=== PATIENT | female | born 1995 | race Caucasian/White ===

== ENCOUNTER 2020-12-22 19:40 | Outpatient (CLI) | payer OTHER ==
[~2020-12-22] VITALS: Ht 162.6 cm; Wt 69.0 kg
[2020-12-22 20:02] VITALS: BP 134/77
[2020-12-22] MEDS ORDERED: PRENTAB9 PO (20:18)
--- NOTE | 2020-12-22 21:25 | IPNPDOC ---
Obstetrical Progress Note Date of Service Dec 22, 2020 Subjective 25yo at 29+3 presents for decreased FM. She normally gets "20 kicks in a minute" unless her baby is sleeping. She is achieving her kick counts but it seems less than usual. She denied VB, LOF, contractions. She otherwise denied a 12 point ROS. Objective Vital Signs Date Time Temp Pulse Resp B/P (MAP) Pulse Ox O2 Delivery O2 Flow Rate FiO2 12/22/20 20:02 97.6 83 16 134/77 (96) Assessment Variability: Moderate Accelerations: Positive Decelerations: None Heart Rate Tracing: Category I Tocometer Contractions: No Assessment and Plan Additional Comments 25yo at 29+3 presents for decreased FM. VS normal. NST CAT I reactive, no contractions on toco. TAUS cephalic, MVP 5cm, +FM. All signs are reassuring at this time. Educated on kick counts, hydration, and regular eating. Educated on routine OB return precautions. Otherwise to follow up at next BRITTNEY IBRAHIM DO Dec 22, 2020 21:25
== END 2020-12-22 21:30 | disposition home or self-care (01) ==
LOC: M LDO 19:40
PROVIDERS: ATTEND Obstetrics & Gynecology
DX: O36.8130 Decreased fetal movements, third trimester, not applicable or unspecified (principal); Z3A.29 29 weeks gestation of pregnancy; Z79.899 Other long term (current) drug therapy
CPT/HCPCS: 59025; 76815; G0378; G0463

== ENCOUNTER 2021-01-23 16:29 | Outpatient (CLI) | payer OTHER ==
[~2021-01-23] VITALS: Ht 167.6 cm; Wt 71.9 kg
[~2021-01-23 16:29] MED LIST: PRENTAB9 PO
[2021-01-23] MEDS ORDERED: PRENTAB9 PO (16:46)
[2021-01-23 16:50] VITALS: BP 130/86
[2021-01-23] MEDS ORDERED: FLUCONAZOLE 50MG TABLET PO ONE (17:45)
[2021-01-23 18:11] VITALS: BP 137/92
[2021-01-23 18:29] LABS: AMORPHOUS SEDIMENT SMALL (NEGATIVE); APPEARANCE, URINE HAZY (CLEAR); BACTERIA, URINE AUTO NEGATIVE (NEGATIVE); BILIRUBIN, URINE AUTO NEGATIVE (NEGATIVE); BLOOD, URINE BLOOD NEGATIVE (NEGATIVE); COLOR, URINE YELLOW (YELLOW); GLUCOSE, URINE (UA) AUTO NEGATIVE (NEGATIVE); KETONE, URINE AUTO NEGATIVE (NEGATIVE); LEUKOCYTE ESTERASE, URINE AUTO NEGATIVE (NEGATIVE); MUCUS, URINE SMALL (NEGATIVE); NITRITE, URINE AUTO NEGATIVE (NEGATIVE); PROTEIN, URINE AUTO NEGATIVE (NEGATIVE); RBC, URINE AUTO 2 /HPF (0-3); SPECIFIC GRAVITY URINE AUTO 1.019 (1.002-1.035); SQUAMOUS EPITHELIAL CELL UR AU 0 /HPF (0-6); WBC, URINE AUTO 3 /HPF (0-3)
--- NOTE | 2021-01-23 18:45 | IPNPDOC ---
Obstetrical Progress Note Date of Service Jan 23, 2021 Subjective Idalia is a 25yo at 34+0 who presents for vaginal discharge, dysuria, and cramps. She has recently been treated for a UTI with macrobid and keflex. She reports superficial pain when she urinates but no suprapubic pain. She endorses thick vaginal discharge and vaginal irritation. She denied vb, lof, decreased fm, contractions. She otherwise denied a 12 point ROS. Objective Vital Signs Date Time Temp Pulse Resp B/P (MAP) Pulse Ox O2 Delivery O2 Flow Rate FiO2 01/23/21 16:50 99.1 69 18 130/86 (101) Assessment Variability: Moderate Accelerations: Positive Decelerations: None Heart Rate Tracing: Category I Tocometer Contractions: No Sterile Vaginal Examination Dilation: 1cm Effacement (%): 30% Station: -3 Cervical Consistency: Medium Cervical Position: Posterior Assessment and Plan Additional Comments Idalia is a 25yo at 34+0 who presents for vaginal discharge, dysuria, and cramps. She has recently been treated for a UTI with macrobid and keflex. VS normal. CAT I NST without contractions, occasional uterine irritability noted. UA without evidence of infection, MAXIMO/WP with abundant budding yeast. Thick white discharge on exam. Cervix visually 1cm and 1/25/-3 on exam and was unchanged on 1.5h repeat exam. Labor is unlikely at this time given non-changing cervix. Vaginal candidiasis was treated with fluconazole 150mg PO. Educated on routine OB return precautions. Otherwise to follow up at next STEPAN. BRITTNEY GRULLON DO Jan 23, 2021 18:45
[2021-01-23 21:07] LABS: GC DNA AMPLIFICATION NEGATIVE (NEGATIVE)
== END 2021-01-23 19:00 | disposition home or self-care (01) ==
LOC: M LDO 16:29
PROVIDERS: ATTEND Obstetrics & Gynecology
DX: O26.893 Other specified pregnancy related conditions, third trimester (principal); N89.8 Other specified noninflammatory disorders of vagina; Z3A.34 34 weeks gestation of pregnancy; R25.2 Cramp and spasm
CPT/HCPCS: 59025; 81001; 87661; G0378; G0463

== ENCOUNTER 2021-02-20 14:04 | Outpatient (CLI) | payer OTHER ==
[2021-02-20] VITALS (7 sets, daily range): BP systolic 115–143; BP diastolic 60–95
[~2021-02-20] VITALS: Ht 170.2 cm; Wt 74.3 kg
[2021-02-20] MEDS ORDERED: HOME MED LIST COMPLETE! XX SCH (14:45)
[2021-02-20 15:39] LABS: HEMOGLOBIN 12.5 g/dl (12.0-15.5); MEAN CORPUSCULAR HEMOGLOBIN 31.4 pg (27.0-33.0); MEAN CORPUSCULAR HGB CONC 34.7 g/dl (32.0-36.5); MEAN CORPUSCULAR VOLUME 90.5 fl (80.0-96.0); PLATELET COUNT, AUTOMATED 245 10^3/uL (150-450); RED BLOOD COUNT 3.98 10^6/uL (4.00-5.40); WHITE BLOOD COUNT 8.1 10^3/uL (4.0-10.0)
[2021-02-20 15:49] LABS: CREATININE,RANDOM URINE 45.2 MG/DL; TOTAL PROTEIN,RANDOM URINE 15.5 MG/DL (0.0-12.0)
[2021-02-20 16:27] LABS: ALT/SGPT 16 U/L (12-78); BILIRUBIN,TOTAL 0.2 MG/DL (0.2-1.0); CREATININE FOR GFR 0.58 MG/DL (0.55-1.30); GLOMERULAR FILTRATION RATE > 60.0 (>60); LDH LACTATE DEHYDROGENASE 164 U/L (84-246); URIC ACID 5.5 MG/DL (2.6-6.0)
--- NOTE | 2021-02-20 16:35 | IPNPDOC ---
Text Note Date of Service The patient was seen on 02/20/21. NOTE Chief Complaint: Patient is a 25 year old at 38+0 weeks gestation presenting to L&D triage for evaluation of elevated blood pressure in clinic. HPI: Denies any leaking of fluid, vaginal bleeding. Reporting good movement. Denies any contractions. Denies any headaches, nausea, vomiting, RUQ pain. Denies vision changes. Objective: VS: 14:27-143/95, P95 14:38- 123/78, P95 14:51- 128/79, P83 15:06- 124/79, P86 15:21- 115/60, P73 15:36- 139/76, P80 15:51- 127/71, P73 General: Alert. Well-appearing, in no acute distress PSYCH: Well groomed. Appropriate affect, normal mood. Conversed easily. Neuro: Oriented to time, place, and person. Patellar Deep tendon reflexes 2+. Negative clonus. RESP: Lungs clear to auscultation bilaterally without wheezes, rales or rhonchi. Unlabored breathing. Thoracic expansion symmetric. No retractions. CV: Normal RRR, no murmur, c/w normal . No edema to bilateral upper and lower extremities. ABD: Soft, non-tender. BS normal x4 quad. No swelling, guarding, mass or lumps noted on palpation. MSK: Legs without edema bilaterally. Normal mvmt all extremities. Steady gait. Reina from a seated position without assistance. Obstetrical: FHR: 145 with moderate variability, accelerations present. No decels noted. No contractions noted. Limited Trans-Abdominal Ultrasound Performed Today: Presentation: VTX Placenta location: posterior Heart Rate Present Amniotic fluid: MVP 4.46cm Laboratory Tests 02/20/21 14:37: Urine Random Creatinine 45.2, Urine Random Total Protein 15.5H, Creatinine 0.58, Glomerular Filtration Rate > 60.0, Uric Acid 5.5, Total Bilirubin 0.2, Aspartate Amino Transf (AST/SGOT) 16, Alanine Aminotransferase (ALT/SGPT) 16, Lactate Dehydrogenase 164 02/20/21 15:29: White Blood Count 8.1, Red Blood Count 3.98L, Hemoglobin 12.5, Hematocrit 36.0, Mean Corpuscular Volume 90.5, Mean Corpuscular Hemoglobin 31.4, Mean Corpuscular Hemoglobin Concent 34.7, Red Cell Distribution Width 12.7, Platelet Count 245, Nucleated Red Blood Cells % (auto) 0.0 A/P Patient is a 25 year old at 38+0 weeks gestation evaluated for elevated blood pressure in clinic. Initial BP mild range, however remaining BP normotensive. Does not meet criteria for hypertensive diagnosis. Benign physical exam Reactive NST, reassuring TAUS showing: normal fluid Labs: Random P:C 0.34. Normal H&H and platelets. Normal LFT. Plan: Pt sent home with 24hr urine, to be turned in tomorrow. To walk in to OB clinic on Tuesday for BP check. Discussed with patient that if elevated again, she would then meet criteria for hypertensive disorder of . Reviewed warning s/s of pre-e and when to contact compressor station chief engineer pager this weekend. Labor precautions reviewed. Verbalized understanding of instructions. All patient questions answered. GUNNER CHANG CNM Feb 20, 2021 14:32
[2021-02-21 20:09] LABS: TOTAL PROTEIN 24 HOUR URINE 370.5 MG/24HR (50-150); URINE TOTAL PROTEIN 24.7 MG/DL (0-12)
== END 2021-02-20 16:38 | disposition home or self-care (01) ==
LOC: M LDO 14:04
PROVIDERS: ATTEND Obstetrics & Gynecology
DX: O26.893 Other specified pregnancy related conditions, third trimester (principal); R03.0 Elevated blood-pressure reading, without diagnosis of hypertension; Z3A.38 38 weeks gestation of pregnancy; Z88.1 Allergy status to other antibiotic agents
CPT/HCPCS: 36415; 59025; 81050; 82247; 82565; 82570; 83615; 84156; 84450; 84460; 84550; 85027; G0378; G0463

== ENCOUNTER → 2021-02-22 | Outpatient (CLI) | payer OTHER ==
[~2021-02-22] VITALS: Ht 170.2 cm; Wt 75.1 kg
[2021-02-22 02:22] VITALS: BP 133/88
[2021-02-22 02:32] VITALS: BP 131/87
--- NOTE | 2021-02-22 03:14 | IPNPDOC ---
Text Note Date of Service The patient was seen on 02/22/21. NOTE Chief Complaint: Ms. Garcia is a 25 year old at 38+2 weeks gestation presenting to L&D triage for complaints of leaking fluid. Patient presents: spouse HPI: Reports that about 4hrs ago she wet her pantiliner and it spilled over and wet her pants. Following call to on-call beeper, she replaced her pad. States she only had a little fluid on the new pad but was still concerned it may be her water and she may get infection. Denies any vaginal bleeding. Reporting good movement. Denies any contractions. Denies any recent intercourse. Denies any headaches, nausea, vomiting, RUQ pain. Denies any dysuria, vaginal discharge, vaginal itching/burning. Objective: VS: BP 133/88, P80 and BP 131/87, P80 General: Alert. Well-appearing, in no acute distress PSYCH: Well groomed. Appropriate affect, normal mood. Conversed easily. Neuro: Oriented to time, place, and person. RESP: Unlabored breathing. CV: No cyanosis ABD: Soft, non-tender. MSK: legs without edema bilaterally. Normal mvmt all extremities. Steady gait. Reina from a seated position without assistance. Obstetrical: FHR: 135 with moderate variability and accels. No decels. Irregular uterine irritability. Pelvic exam: External Genitalia showed no abnormalities, without lesions; normal vulva with NO vulvar atrophy, hypertrophy, stricture, adhesions, ulcers, lesions, masses, or vulvitis. Vagina: Normal white vaginal discharge was observed, non adherent. Normal mucosa with good rugae. No ulcerations, masses, lesions or lacerations. No unusual odors. Cervix: Normal mucoid discharge, no lesions, no CMT on speculum insertion. Non-friable, no masses. Cervical os visually closed. Negative valsalva. Negative nitrazine. Negative ferning. Hospice Superintendent present for exam: Jakob, L&D RN A/P 25yo G 1 P 0 at 38+2 wks gestation evaluated in L&D triage for complaints of leaking. VSS and normal. Of note, had elevated BP in [facility] on 02/20/21. Normotensive since that time. Does have proteinuria. Benign physical exam, Negative nitrazine. Negative ferning. Not ruptured. Visually closed cervix. Reactive NST, reassuring Plan: To follow up in clinic for BP check on Tuesday. Will need IOL if has another elevated BP. Educated on routine OB return precautions and warning signs. Follow up on TRANSPORTATION OFFICER clinic as previously scheduled. GUNNER CHANG CNM Feb 22, 2021 03:14
== END ==
LOC: M LDO 01:49
PROVIDERS: ATTEND Advanced Practice Midwife
DX: O26.893 Other specified pregnancy related conditions, third trimester (principal); Z3A.38 38 weeks gestation of pregnancy; N89.8 Other specified noninflammatory disorders of vagina; R03.0 Elevated blood-pressure reading, without diagnosis of hypertension
CPT/HCPCS: 59025; G0378; G0463

== ENCOUNTER 2021-02-23 12:56 | Inpatient (IN) | payer OTHER ==
[2021-02-23] VITALS (22 sets, daily range): BP systolic 132–165; BP diastolic 75–107
[~2021-02-23] VITALS: Ht 170.2 cm; Wt 75.4 kg
[2021-02-23] MEDS ORDERED: HOME MED LIST COMPLETE! XX SCH ×2 (13:20)
[2021-02-23] MEDS ORDERED: LACTATED RINGER'S 1000 ML IV STA (13:39)
[2021-02-23] MEDS ORDERED: LR 1,000 ML IV SCH (13:40)
[2021-02-23] MEDS ORDERED: TRANEXAMIC ACID INJection 1,000 MG in NS 100 ML IV PRN (13:40)
[2021-02-23] MEDS ORDERED: METHYLERGONOVINE MALEATE 0.2 MG/ML VIAL (J2210) IM PRN (13:40)
[2021-02-23] MEDS ORDERED: LIDOCAINE 1% MDV 20ML VIAL INFIL PRN (13:40)
[2021-02-23] MEDS ORDERED: CARBOPROST TROMETHAMINE 250 MCG/ML AMP IM PRN (13:40)
[2021-02-23] MEDS ORDERED: OXYTOCIN DRIP 30 UNITS in IV 1 EA IV PRN (13:40)
[2021-02-23] MEDS ORDERED: OXYTOCIN DRIP 30 UNITS in IV 1 EA IV SCH (13:40)
[2021-02-23 13:47] LABS: HEMATOCRIT 37.8 % (36.0-47.0); HEMOGLOBIN 12.9 g/dl (12.0-15.5); MEAN CORPUSCULAR HEMOGLOBIN 31.5 pg (27.0-33.0); MEAN CORPUSCULAR HGB CONC 34.1 g/dl (32.0-36.5); MEAN CORPUSCULAR VOLUME 92.2 fl (80.0-96.0); PLATELET COUNT, AUTOMATED 261 10^3/uL (150-450); WHITE BLOOD COUNT 8.9 10^3/uL (4.0-10.0)
[2021-02-23 14:19] LABS: ALT/SGPT 15 U/L (12-78); BILIRUBIN,TOTAL 0.2 MG/DL (0.2-1.0); CREATININE FOR GFR 0.64 MG/DL (0.55-1.30); GLOMERULAR FILTRATION RATE > 60.0 (>60); LDH LACTATE DEHYDROGENASE 171 U/L (84-246); URIC ACID 5.7 MG/DL (2.6-6.0)
--- NOTE | 2021-02-23 14:24 | HPEPDOC ---
Obstetrical History & Physical General Date of Admission Feb 23, 2021 at 13:17 History of Present Illness 25 yo at 38w3d with GARY of 06 MAR 2021 presents to L&D from the clinic after her walk-in BP check today with mildly elevated BP. She was sent to L&D on 21 FEB 2021 for elevated BP and sent home with a 24 hr urine collection to return. Her 24 hr urine was 370.5, which meets criteria for pre-eclampsia. She reports irregular contractions. She denies headache, chest pain, RUQ pain, visual changes, vaginal bleeding, leaking of fluid, and reports positive movement. Interval history: Pre-eclampsia Hx of frequent UTIs Chief Complaint: Induction of labor (pre-eclampsia) Information Provided By: Patient Age: 25 : 1 Term: 0 Pre-term: 0 Abortions: 0 Livin Care Care: Good Care Dating Final EDC: Mar 06, 2021 Final EDC by: LMP, 1st trimester (US) LMP: May 18, 2020 1st Trimester Date: Aug 08, 2020 Weeks + Days: 10.0 EGA at Admission: 38.3 Antepartum Course Height (inches): 67 Pre- weight (lbs.): 140 Admission Weight (lbs.): 166 Change in Weight (lbs.): 26 Past Medical History Past Obstetrical History : Past Obstetrical History: Primgravida RUN LEAD History: No pertinent history Past Medical History Medical History Hx of frequent UTIs Surgical History: Denies/None Family History Significant Family History: No pertinent family hx Social History Marital Status: Family situation: Spouse/partner home Psychosocial History: No pertinent psych hx * Smoker: non-smoker Alcohol: Denies Drugs: denies Abuse Violence Screening Have you been hit/kicked/slapp: No Have you been sexually assault: No Imunizations Tdap status: current Allergies Coded Allergies: cephalexin (Verified Allergy, Mild, ITCHY FACE AND REDNESS, 02/20/21) Medications Scheduled No.137/Iron/Folic Acd ( Vitamin Tablet) 1 Each Tablet, 1 TAB PO TID Physical Examination Physical Examination GENERAL: Alert and oriented times three. BREAST: . ABDOMEN: Gravid and non-tender to touch. FETUS: Is vertex (VTX) by sterile vaginal examination (SVE), fetus is vertex (VTX) by Jeramie. HEART RATE: Regular rate and rhythm. LUNGS: Clear to auscultation (CTA). EXTREMITIES: No edema. No clonus. Deep tendon reflexes (DTRs) + 2. Vital Signs/I&O Vital Signs Date Time Temp Pulse Resp B/P (MAP) Pulse Ox O2 Delivery O2 Flow Rate FiO2 02/23/21 13:17 98.0 105 18 144/99 (114) Laboratory Data 24H LABS Laboratory Tests 2 02/23/21 13:21: Nucleated Red Blood Cells % (auto) 0.0 02/23/21 13:39: Serology Scanned Report Hepatitis B Testing CBC/BMP Laboratory Tests 02/23/21 13:21 Pertinent Laboratoy Data Blood Type: A+ RBC Antibody Screen: Negative HIV: Negative Hepatitis B: Negative Rapid Plasma Reagin: Nonreactive Rubella: Immune Varicella: Immune Chlamydia/Gonorrhea: Negative Group B Streptococcus: Negative Cystic Fibrosis: Negative Steroid Therapy Steroid Therapy: No Vaginal Examination Dilation: 3 cm Effacement: 80% Station: -3 Cervical Consistency: Soft Cervical Position: Posterior Presentation: Cephalic presentation Position: Vertex (occiput) Assessment Heart Rate (FHR): 150 Variability: Moderate Accelerations: Positive Decelerations: None Tocometer Contractions: No (uterine irritability noted) Multi-drug resistant Organism: No history of MDRO Assessment/Plan Assessment IUP at 38w3d IOL for pre-eclampsia Plan Admit and orient. Hatchery Attendant and consent. Diet: clear liquids. Group B Streptococcus (GBS) negative. Labs and intravenous (IV) per unit protocol. Counseled on Pitocin and induction of labor (IOL). Lactated Ringers (LR): Bolus 1000 mL, then at 125 mL/hr. Anticipate normal spontaneous delivery (). C-S as appropriate. Labor and Delivery Counseling We will deliver your baby through the vagina with possible assistance of forceps or vacuum device if needed for maternal or indications. Forceps and vacuum are devices that can assist with vaginal delivery when normal pushing efforts cannot achieve delivery on their own or when delivery is needed in an emergency for baby's well-being. Medications may be required to induce or augment (help) your labor in order to achieve a vaginal delivery. An episiotomy may be required to help your baby to delivery vaginally. You may also require repair of any lacerations or tears of your vagina or vulva that are caused by delivery. In some cases, emergencies can occur that require an emergency section delivery so quickly that there may not be enough time to stop and complete cons ent forms for section. Understand that if this occurs, your providers will discuss the need for a section with you before they proceed with surgery. section is the delivery of your baby through an incision in your abdomen. In some situations, section may be safer to mom and baby than continuing labor and is only performed when clinically indicated. Risks of vaginal delivery include but are not limited to: Bleeding, infection, injury to the vagina, pelvic structures, injury to baby, damage to the uterus, reactions to anesthesia, uterine rupture, risk of hysterectomy for life threatening bleeding, or . Medications used to induce or augment labor may increase your risk for infection, uterine tachysystole, uterine rupture, heart rate abnormalities, need for emergency delivery or possible hysterectomy, and hemorrhage. Additional risks for use of forceps and vacuum include: increased risk of perineal and vaginal lacerations, risk of urinary or bowel incontinence, increased risk of injury to baby with bruising, scratches, hematomas on the head, or intracranial bleeding. After discussion with the patient, she verbalized understanding of all risks, benefits, alternatives, and side effects of all information and is without any further questions at this time. INDER TIM CNM Feb 23, 2021 14:09
[2021-02-23 15:23] LABS: CREATININE,RANDOM URINE 43.1 MG/DL; TOTAL PROTEIN,RANDOM URINE 18.2 MG/DL (0.0-12.0)
[2021-02-23] MEDS: LR 1,000 ML IV SCH (16:28)
--- NOTE | 2021-02-23 22:11 | IPNPDOC ---
Obstetrical Progress Note Date of Service Feb 23, 2021 Objective Vital Signs Date Time Temp Pulse Resp B/P (MAP) Pulse Ox O2 Delivery O2 Flow Rate FiO2 02/23/21 21:52 98.5 89 18 137/80 (99) Assessment and Plan Additional Comments To room for interval assessment. Patient reports some increase in pain with contractions but is overall comfortable. SVE unchanged at 3cm, 3/80/-2. BRITTNEY GRULLON DO Feb 23, 2021 22:11
[2021-02-24] VITALS (22 sets, daily range): BP systolic 124–163; BP diastolic 63–95
[2021-02-24] MEDS ORDERED: PROMETHAZINE INJ 25 MG/ML VIAL (J2550) IV ONE (01:40)
[2021-02-24] MEDS ORDERED: BUTORPHANOL 2 MG/ML INJ (J0595) IV ONE (01:40)
[2021-02-24] MEDS: LR 1,000 ML IV SCH ×4 (01:59→20:47)
--- NOTE | 2021-02-24 06:43 | IPNPDOC ---
Obstetrical Progress Note Date of Service Feb 24, 2021 Objective Vital Signs Date Time Temp Pulse Resp B/P (MAP) Pulse Ox O2 Delivery O2 Flow Rate FiO2 02/24/21 05:16 90 128/80 (96) 02/24/21 04:44 98.7 18 Sterile Vaginal Examination Dilation: 8 cm Effacement (%): 90% Station: -2 Postion/Presentation: Cephalic presentation (by exam) Assessment and Plan Status: Reassuring Anticipate: Vaginal Delivery Additional Comments To room for assessment. SVE /-2. AROM clear. CAT I NST reactive. Continue IOL with pitocin. Reassess in 1-2h or sooner if clinically indicated. BRITTNEY GRULLON DO Feb 24, 2021 06:43
[2021-02-24] MEDS: PRENATAL VITAMINS CHEWABLE TABLET PO SCH (09:00)
--- NOTE | 2021-02-24 09:07 | DNPDOC ---
[facility] Delivery Note Delivery Note Date of the procedure: 24 FEB 2021 Preoperative diagnosis: 1. 25 y/o at 38w4d 2. Induction of labor for pre-eclampsia 3. GBS negative 4. A Positive Postoperative diagnosis: 1. 25 y/o G1 now P1 at 38w4d 2. Induction of labor for pre-eclampsia 3. GBS negative 4. A Positive Procedure: Delivering Provider: ALVINA Main CNM, BART Remediation Consultant Back-up: Dr. Jesus Miller Anesthesia: Stadol and Phenergan EBL: 150 ml Specimens: None Findings: Live female weighing 6 lb 14 oz, 3110 grams with Apgars of 9 and 9 at 1 and 5 minutes respectively. Complications: Pre-eclampsia Details of the procedure: The patient presented from the clinic with elevated BPs and was found to have pre-eclampsia. Patient was 3 cm dilated and was then admitted to L&D. Labor progressed without Pitocin and membranes were ruptured artificially for clear fluid.. The patient progressed to fully dilated and entered the second stage of labor, a t which point she began to push over an intact perineum. The head was then delivered. The nuchal cord was not noted. The rest of the was delivered. The was placed on maternal abdomen and the cord was doubly clamped and cut. Cord blood was not collected and a 3 vessel cord was noted. Manual exploration of the uterus was not performed. Uterine tone was firm. Perineum was inspected and no laceration was found. Cervical exam was normal. Rectal exam was not noted. Sponge, instrument, and needle counts were correct. The patient tolerated the procedure well and is stable in recovery. Note was written and electronically signed by: ALVINA Main CNM, INDER CURRAN CNM Feb 24, 2021 09:02
[2021-02-24] MEDS ORDERED: ACETAMINOPHEN TAB 650MG DOSE (2X325MG) PO PRN (09:10)
[2021-02-24] MEDS ORDERED: MEASLES,MUMPS,RUBELLA VACCINE INJ (MMR-II) (90707) SC SCH (09:10)
[2021-02-24] MEDS ORDERED: IBUPROFEN 600MG TAB PO PRN (09:10)
[2021-02-24] MEDS ORDERED: ACETAMINOPHEN 500 MG TAB PO PRN (09:10)
[2021-02-24] MEDS ORDERED: ANUSOL HC CREAM 30GM TOP PRN (09:10)
[2021-02-24] MEDS ORDERED: PROMETHAZINE 25 MG TAB PO PRN (09:10)
[2021-02-24] MEDS ORDERED: LABETALOL 100MG/20ML VIAL IV STA (09:16)
[2021-02-24] MEDS: DOCUSATE SODIUM 100MG CAPSULE PO SCH ×2 (15:36→20:41)
[2021-02-24] MEDS: DIBUCAINE 1% OINTMENT 30GM TOP PRN (18:07)
[2021-02-25 02:00] VITALS: BP 142/84
[2021-02-25] MEDS: LR 1,000 ML IV SCH (05:40)
[2021-02-25 06:00] VITALS: BP 138/90
[2021-02-25] MEDS: DOCUSATE SODIUM 100MG CAPSULE PO SCH ×2 (08:25→21:49)
[2021-02-25] MEDS: PRENATAL VITAMINS CHEWABLE TABLET PO SCH (08:25)
[2021-02-25 09:57] VITALS: BP 142/79
[2021-02-25 11:19] LABS: HEMATOCRIT 35.6 % (36.0-47.0); HEMOGLOBIN 12.1 g/dl (12.0-15.5); MEAN CORPUSCULAR HEMOGLOBIN 31.1 pg (27.0-33.0); MEAN CORPUSCULAR VOLUME 91.5 fl (80.0-96.0); PLATELET COUNT, AUTOMATED 216 10^3/uL (150-450); RED BLOOD COUNT 3.89 10^6/uL (4.00-5.40); WHITE BLOOD COUNT 12.7 10^3/uL (4.0-10.0)
[2021-02-25 13:09] LABS: ALT/SGPT 15 U/L (12-78); BILIRUBIN,TOTAL 0.2 MG/DL (0.2-1.0); CREATININE FOR GFR 0.64 MG/DL (0.55-1.30); GLOMERULAR FILTRATION RATE > 60.0 (>60); LDH LACTATE DEHYDROGENASE 249 U/L (84-246); URIC ACID 5.6 MG/DL (2.6-6.0)
[2021-02-25 14:00] VITALS: BP 138/74
[2021-02-25] MEDS: DIBUCAINE 1% OINTMENT 30GM TOP PRN (16:04)
[2021-02-25 18:00] VITALS: BP 143/99
[2021-02-25] MEDS: IBUPROFEN 800 MG TAB PO PRN (19:24)
[2021-02-25 22:00] VITALS: BP 138/89
[2021-02-26 02:00] VITALS: BP 119/75
[2021-02-26 06:00] VITALS: BP 113/68
--- NOTE | 2021-02-26 07:25 | IPNPDOC ---
Progress Note Date of Service: Feb 25, 2021 Day#: 1 Progress Note Ms. Garcia is a 25 yo PPD1 s/p after induction for pre- eclampsia; Live female infant weighing 6 lb 14 oz, 3110 grams with Apgars of 9 and 9 at 1 and 5 minutes respectively. She has been ambulating, voiding s pontaneously without issue and tolerating regular diet. Breast feeding without issue. Reports lochia is less than a normal period. Patient is ambulating well. Reports some cramping with . Denies any pain. Voiding and passing flatus without difficulty. Interval history: Pre-eclampsia Hx of frequent UTIs OBJECTIVE: VITAL SIGNS: Within normal limits, afebrile. Alert and oriented times three. no increased wob Heart rate: non tachy Abdomen: Fundus firm at U-2. Soft, NTTP. [Minimal] lochia per pt ASSESSMENT: Ms. Garcia is a 25 yo PPD1 s/p after induction for pre-eclampsia; Live female infant weighing 6 lb 14 oz, 3110 grams with Apgars of 9 and 9 at 1 and 5 minutes respectively. Vitals within normal limits, afebrile, hemodynamically stable with no evidence of infection. She has no signs or symptoms of pre-eclampsia. She has been normotensive to mild range and has not required blood pressure medications. PLAN: 1. Discharge to home feli tomorrow. 2. Tylenol and Motrin for pain. 3. Encourage breast feeding and ambulation. 4. Plans on minipill for contraception. 5. Routine PP visit in 72h and 7d for blood pressure checks and 6 weeks in clinic. 6. Discussed return precautions at length to include symptoms of pre-eclampsia 7. Discussed activity limitations (pelvic rest). VS, I&O, 24H, Fishbone Vital Signs/I&O Vital Signs Date Time Temp Pulse Resp B/P (MAP) Pulse Ox O2 Delivery O2 Flow Rate FiO2 02/26/21 06:00 98.4 80 16 113/68 (83) 97 Room Air I&O- Last 24 Hours up to 6 AM 02/26/21 06:00 Intake Total 300 ml Balance 300 ml Laboratory Data 24H LABS Laboratory Tests 2 02/25/21 11:00: Nucleated Red Blood Cells % (auto) 0.0, Glomerular Filtration Rate > 60.0, Uric Acid 5.6, Total Bilirubin 0.2, Aspartate Amino Transf (AST/SGOT) 22, Alanine Aminotransferase (ALT/SGPT) 15, Lactate Dehydrogenase 249H CBC/BMP Laboratory Tests 02/25/21 11:00 BRITTNEY GRULLON DO Feb 26, 2021 07:25
--- NOTE | 2021-02-26 07:26 | OBDS ---
[facility] Obstetrical Discharge Sum. Obstetrical Discharge Summary Date: Feb 26, 2021 A/P, Post Course List any complications Ms. Garcia is a 25 yo PPD1 s/p after induction for pre- eclampsia; Live female weighing 6 lb 14 oz, 3110 grams with Apgars of 9 and 9 at 1 and 5 minutes respectively. She has been ambulating, voiding spontaneously without issue and tolerating regular diet. Breast feeding without issue. Reports lochia is less than a normal period. Patient is ambulating well. Reports some cramping with . Denies any pain. Voiding and passing flatus without difficulty. Vitals within normal limits, afebrile, hemodynamically stable with no evidence of infection. She has no signs or symptoms of pre-eclampsia. She has been normotensive to mild range and has not required blood pressure medications. Interval history: Pre-eclampsia Hx of frequent UTIs PLAN: 1. Discharge to home today. 2. Tylenol and Motrin for pain. 3. Encourage breast feeding and ambulation. 4. Plans on minipill for contraception. 5. Routine PP visit in 72h and 7d for blood pressure checks and 6 weeks in clinic. 6. Discussed return precautions at length to include symptoms of pre-eclampsia 7. Discussed activity limitations (pelvic rest). final diagnosis: vaginal delivery, pre-eclampsia BRITTNEY GRULLON DO Feb 26, 2021 07:26
--- NOTE | 2021-02-26 07:26 | IPNPDOC ---
Progress Note Date of Service: Feb 26, 2021 Day#: 2 Progress Note Ms. Garcia is a 25 yo PPD2 s/p after induction for pre- eclampsia; Live female infant weighing 6 lb 14 oz, 3110 grams with Apgars of 9 and 9 at 1 and 5 minutes respectively. She has been ambulating, voiding s pontaneously without issue and tolerating regular diet. Breast feeding without issue. Reports lochia is less than a normal period. Patient is ambulating well. Reports some cramping with . Denies any pain. Voiding and passing flatus without difficulty. Interval history: Pre-eclampsia Hx of frequent UTIs OBJECTIVE: VITAL SIGNS: Within normal limits, afebrile. Alert and oriented times three. no increased wob Heart rate: non tachy Abdomen: Fundus firm at U-2. Soft, NTTP. [Minimal] lochia per pt ASSESSMENT: Ms. Garcia is a 25 yo PPD2 s/p after induction for pre-eclampsia; Live female infant weighing 6 lb 14 oz, 3110 grams with Apgars of 9 and 9 at 1 and 5 minutes respectively. Vitals within normal limits, afebrile, hemodynamically stable with no evidence of infection. She has no signs or symptoms of pre-eclampsia. She has been normotensive to mild range and has not required blood pressure medications. PLAN: 1. Discharge to home feli tomorrow. 2. Tylenol and Motrin for pain. 3. Encourage breast feeding and ambulation. 4. Plans on minipill for contraception. 5. Routine PP visit in 72h and 7d for blood pressure checks and 6 weeks in clinic. 6. Discussed return precautions at length to include symptoms of pre-eclampsia 7. Discussed activity limitations (pelvic rest). VS, I&O, 24H, Fishbone Vital Signs/I&O Vital Signs Date Time Temp Pulse Resp B/P (MAP) Pulse Ox O2 Delivery O2 Flow Rate FiO2 02/26/21 06:00 98.4 80 16 113/68 (83) 97 Room Air I&O- Last 24 Hours up to 6 AM 02/26/21 06:00 Intake Total 300 ml Balance 300 ml Laboratory Data 24H LABS Laboratory Tests 2 02/25/21 11:00: Nucleated Red Blood Cells % (auto) 0.0, Glomerular Filtration Rate > 60.0, Uric Acid 5.6, Total Bilirubin 0.2, Aspartate Amino Transf (AST/SGOT) 22, Alanine Aminotransferase (ALT/SGPT) 15, Lactate Dehydrogenase 249H CBC/BMP Laboratory Tests 02/25/21 11:00 BRITTNEY GRULLON DO Feb 26, 2021 07:25
[2021-02-26 10:00] VITALS: BP 124/65
[2021-02-26] MEDS: PRENATAL VITAMINS CHEWABLE TABLET PO SCH (11:17)
[2021-02-26] MEDS: IBUPROFEN 800 MG TAB PO PRN (11:17)
[2021-02-26] MEDS: DOCUSATE SODIUM 100MG CAPSULE PO SCH (11:17)
== END 2021-02-26 12:20 | disposition home or self-care (01) | DRG 807 ==
LOC: M LDO 12:56 → M LDI 13:17 → M OBS 02-24 11:14
PROVIDERS: ADMIT Registered Nurse Maternal Newborn; ATTEND Registered Nurse Maternal Newborn
PROC: 10E0XZZ Delivery of Products of Conception, External Approach (ICD-10-PCS; principal; 2021-02-24)
PROC: 10907ZC Drainage of Amniotic Fluid, Therapeutic from Products of Conception, Via Natural or Artificial Opening (ICD-10-PCS; 2021-02-24)
DX: O14.94 Unspecified pre-eclampsia, complicating childbirth (principal); Z37.0 Single live birth; Z3A.38 38 weeks gestation of pregnancy

== ENCOUNTER 2021-10-01 21:54 | Emergency (ER) | payer OTHER ==
[2021-10-01 23:54] VITALS: BP 131/75
== END 2021-10-02 00:50 | disposition left against medical advice (07) ==
LOC: M ED 21:54
DX: Z53.21 Procedure and treatment not carried out due to patient leaving prior to being seen by health care provider (principal)

== ENCOUNTER → 2021-10-02 | Outpatient (REF) | payer OTHER | LOC: M LAB REF 20:58 | PROVIDERS: ATTEND Internal Medicine | DX: M54.50 Low back pain, unspecified (principal) ==

== ENCOUNTER → 2021-10-05 | Outpatient (CLI) | payer OTHER | LOC: M WUC 11:43 | DX: M54.50 Low back pain, unspecified (principal) ==

== ENCOUNTER → 2022-12-04 | Outpatient (REF) | payer OTHER ==
[2022-12-04 18:00] LABS: APPEARANCE, URINE HAZY (CLEAR); BACTERIA, URINE AUTO NEGATIVE (NEGATIVE); BILIRUBIN, URINE AUTO NEGATIVE (NEGATIVE); BLOOD, URINE BLOOD NEGATIVE (NEGATIVE); COLOR, URINE YELLOW (YELLOW); GLUCOSE, URINE (UA) AUTO 2+ mg/dL (NEGATIVE); KETONE, URINE AUTO NEGATIVE (NEGATIVE); LEUKOCYTE ESTERASE, URINE AUTO 1+ (NEGATIVE); MUCUS, URINE SMALL (NEGATIVE); NITRITE, URINE AUTO NEGATIVE (NEGATIVE); PROTEIN, URINE AUTO NEGATIVE (NEGATIVE); RBC, URINE AUTO 2 /HPF (0-3); SPECIFIC GRAVITY URINE AUTO 1.018 (1.002-1.035); SQUAMOUS EPITHELIAL CELL UR AU 7 /HPF (0-6); WBC, URINE AUTO 6 /HPF (0-3)
== END ==
LOC: M LAB REF 17:44
PROVIDERS: ATTEND Physician Assistant Medical
DX: N39.0 Urinary tract infection, site not specified (principal)

== ENCOUNTER 2023-01-19 05:47 | Outpatient (CLI) | payer OTHER ==
[~2023-01-19] VITALS: Ht 170.2 cm; Wt 74.8 kg
[2023-01-19 06:04] VITALS: BP 135/69
[2023-01-19 06:50] LABS: TOTAL PROTEIN,RANDOM URINE 59.2 MG/DL (0.0-14.0)
[2023-01-19 06:53] LABS: HEMATOCRIT 35.3 % (36.0-47.0); HEMOGLOBIN 11.8 g/dl (12.0-15.5); MEAN CORPUSCULAR HEMOGLOBIN 30.6 pg (27.0-33.0); MEAN CORPUSCULAR HGB CONC 33.4 g/dl (32.0-36.5); MEAN CORPUSCULAR VOLUME 91.7 fl (80.0-96.0); PLATELET COUNT, AUTOMATED 237 10^3/uL (150-450); RED BLOOD COUNT 3.85 10^6/uL (4.00-5.40); WHITE BLOOD COUNT 10.5 10^3/uL (4.0-10.0)
[2023-01-19 06:54] LABS: CREATININE,RANDOM URINE 178.1 MG/DL
[2023-01-19 07:17] LABS: LIPASE 39 U/L (12-53)
[2023-01-19 07:18] LABS: AMYLASE 77 U/L (30-118)
[2023-01-19 07:19] LABS: ALBUMIN 2.9 G/DL (3.2-5.2); ALKALINE PHOSPHATASE 119 U/L (46-116); ALT/SGPT 38 U/L (7.0-40); AST/SGOT 60 U/L (<34); BLOOD UREA NITROGEN 9 MG/DL (9-23); CALCIUM LEVEL 8.7 MG/DL (8.5-10.1); CARBON DIOXIDE LEVEL 22 MMOL/L (20-31); CHLORIDE LEVEL 105 MMOL/L (98-107); CREATININE FOR GFR 0.46 MG/DL (0.55-1.30); GLOMERULAR FILTRATION RATE > 60.0 (>60); GLUCOSE, FASTING 106 MG/DL (60-100); POTASSIUM SERUM 3.6 MMOL/L (3.5-5.1); SODIUM LEVEL 137 MMOL/L (136-145); TOTAL PROTEIN 6.3 G/DL (5.7-8.2)
[2023-01-19 07:22] VITALS: BP 128/73
[2023-01-19 08:37] VITALS: BP 134/77
== END 2023-01-19 08:36 | disposition home or self-care (01) ==
LOC: M LDO 05:47
PROVIDERS: ATTEND Obstetrics & Gynecology
DX: O99.613 Diseases of the digestive system complicating pregnancy, third trimester (principal); K80.20 Calculus of gallbladder without cholecystitis without obstruction; Z3A.33 33 weeks gestation of pregnancy; Z88.1 Allergy status to other antibiotic agents
CPT/HCPCS: 36415; 59025; 76705; 80053; 82150; 82570; 83690; 84156; 85027; G0463

== ENCOUNTER 2023-03-12 08:38 | Inpatient (IN) | payer OTHER ==
[2023-03-12] VITALS (26 sets, daily range): BP systolic 127–195; BP diastolic 58–134; O2SAT 97
[~2023-03-12] VITALS: Ht 170.2 cm; Wt 78.4 kg
[2023-03-12] MEDS ORDERED: LACTATED RINGER'S 1000 ML IV STA (09:32)
[2023-03-12] MEDS ORDERED: METHYLERGONOVINE MALEATE 0.2MG/ML 1ML VIAL IM PRN (09:35)
[2023-03-12] MEDS ORDERED: OXYTOCIN INJ 10UNITS/ML 1ML VIAL IM PRN (09:35)
[2023-03-12] MEDS ORDERED: TRANEXAMIC ACID INJection 1,000 MG in NS 100 ML IV PRN (09:35)
[2023-03-12] MEDS ORDERED: OXYTOCIN DRIP 30 UNITS in IV 1 EA IV PRN ×6 (09:35)
[2023-03-12] MEDS ORDERED: LIDOCAINE 1% MDV 20ML VIAL INFIL PRN (09:35)
[2023-03-12] MEDS ORDERED: CARBOPROST TROMETHAMINE 250 MCG/ML AMP IM PRN (09:35)
[2023-03-12] MEDS ORDERED: HOME MED LIST COMPLETE! XX SCH (09:50)
[2023-03-12] MEDS ORDERED: LR 1,000 ML IV SCH (10:15)
[2023-03-12] MEDS ORDERED: OXYTOCIN DRIP 30 UNITS in IV 1 EA IV SCH ×5 (10:15→19:25)
[2023-03-12 11:09] LABS: APPEARANCE, URINE CLEAR (CLEAR); BACTERIA, URINE AUTO NEGATIVE (NEGATIVE); BILIRUBIN, URINE AUTO NEGATIVE (NEGATIVE); BLOOD, URINE BLOOD NEGATIVE (NEGATIVE); COLOR, URINE STRAW (YELLOW); GLUCOSE, URINE (UA) AUTO NEGATIVE (NEGATIVE); KETONE, URINE AUTO NEGATIVE (NEGATIVE); LEUKOCYTE ESTERASE, URINE AUTO NEGATIVE (NEGATIVE); NITRITE, URINE AUTO NEGATIVE (NEGATIVE); PROTEIN, URINE AUTO NEGATIVE (NEGATIVE); RBC, URINE AUTO 0 /HPF (0-3); SPECIFIC GRAVITY URINE AUTO 1.004 (1.002-1.035); SQUAMOUS EPITHELIAL CELL UR AU 2 /HPF (0-6); UROBILINOGEN, URINE AUTO 0.2 mg/dL (0.0-2.0); WBC, URINE AUTO 1 /HPF (0-3)
[2023-03-12 11:11] LABS: HEMATOCRIT 36.8 % (36.0-47.0); HEMOGLOBIN 12.9 g/dl (12.0-15.5); MEAN CORPUSCULAR HEMOGLOBIN 30.4 pg (27.0-33.0); MEAN CORPUSCULAR HGB CONC 35.1 g/dl (32.0-36.5); MEAN CORPUSCULAR VOLUME 86.6 fl (80.0-96.0); PLATELET COUNT, AUTOMATED 220 10^3/uL (150-450); RED BLOOD COUNT 4.25 10^6/uL (4.00-5.40); WHITE BLOOD COUNT 8.9 10^3/uL (4.0-10.0)
[2023-03-12] MEDS: LR 1,000 ML IV SCH ×3 (11:16→19:25)
[2023-03-12 19:12] LABS: CORD GAS ABE A -7.7; CORD GAS HCO3 A 22.7 MMOL/L; CORD GAS O2 SAT A 25.7 %; CORD GAS PCO2 A 64.5 mmHg; CORD GAS PH A 7.164 UNITS; CORD GAS PO2 A 19.2 mmHg; CORD GAS SBC A 16.6 MMOL/L; CORD GAS TCO2 A 24.7 MMOL/L
[2023-03-12 19:13] LABS: CORD GAS ABE V -6.8; CORD GAS HCO3 V 18.5 MMOL/L; CORD GAS O2 SAT V 76.6 %; CORD GAS PCO2 V 37.3 mmHg; CORD GAS PH V 7.314 UNITS; CORD GAS SBC V 18.6 MMOL/L; CORD GAS TCO2 V 19.7 MMOL/L
[2023-03-12] MEDS ORDERED: IBUPROFEN 600MG TAB PO PRN (19:25)
[2023-03-12] MEDS ORDERED: MOM 30ML SUSPENSION UDC PO PRN (19:25)
[2023-03-12] MEDS ORDERED: METHYLERGONOVINE MALEATE 0.2 MG TAB PO PRN (19:25)
[2023-03-12] MEDS ORDERED: DIBUCAINE 1% OINTMENT 30GM TOP PRN (19:25)
[2023-03-12] MEDS ORDERED: RHOGAM 300MCG (1500IU) INJ IM SCH (19:25)
[2023-03-12] MEDS ORDERED: ANUSOL HC CREAM 30GM TOP PRN (19:25)
[2023-03-12] MEDS ORDERED: METOCLOPRAMIDE INJ 10MG/2ML VIAL IV PRN (19:25)
[2023-03-12] MEDS ORDERED: ACETAMINOPHEN TAB 650MG DOSE (2X325MG) PO PRN (19:25)
[2023-03-12] MEDS ORDERED: LABETALOL 100MG/20ML VIAL IV STA (19:37)
[2023-03-12] MEDS: DOCUSATE SODIUM 100MG CAPSULE PO PRN (23:49)
[2023-03-13] MEDS: LR 1,000 ML IV SCH (03:25)
[2023-03-13] MEDS: IBUPROFEN 800 MG TAB PO PRN ×2 (05:05→17:46)
[2023-03-13 06:00] VITALS: BP 127/66; O2SAT 96
[2023-03-13 08:35] LABS: CREATININE,RANDOM URINE 24.6 MG/DL (0.0-30.0); TOTAL PROTEIN,RANDOM URINE < 6.0 MG/DL (0.0-20.0)
[2023-03-13 08:38] LABS: ALT/SGPT < 9 U/L (1-33); AST/SGOT 15 U/L (5-40); BLOOD UREA NITROGEN 9 MG/DL (7-21); CALCIUM LEVEL 10.2 MG/DL (8.4-10.2); CARBON DIOXIDE LEVEL 19 MEQ/L (22-30); CHLORIDE LEVEL 102 MEQ/L (98-107); CREATININE FOR GFR 0.5 MG/DL (0.7-1.5); GLOMERULAR FILTRATION RATE > 60.0 (>60); GLUCOSE, FASTING 79 MG/DL (70-99); POTASSIUM SERUM 4.2 MEQ/L (3.6-5.0); SODIUM LEVEL 136 MEQ/L (134-153)
[2023-03-13 08:39] LABS: ALKALINE PHOSPHATASE 194 U/L (35-104); LDH LACTATE DEHYDROGENASE 171 U/L (135-214)
[2023-03-13] MEDS: PRENATAL VITAMINS CHEWABLE TABLET PO SCH (08:58)
[2023-03-13] MEDS ORDERED: PRENATAL VITAMINS CHEWABLE TABLET PO SCH (09:00)
[2023-03-13 09:05] LABS: BILIRUBIN,TOTAL < 0.7 MG/DL (0.2-1.3); URIC ACID 5.7 MG/DL (2.5-8.5)
[2023-03-13 09:06] LABS: ALBUMIN 3.8 G/DL (3.9-5.0); TOTAL PROTEIN 6.7 G/DL (6.3-8.2)
[2023-03-13] MEDS: ACETAMINOPHEN 500 MG TAB PO PRN ×2 (09:16→19:56)
[2023-03-13] MEDS: DOCUSATE SODIUM 100MG CAPSULE PO PRN (12:54)
[2023-03-13 18:00] VITALS: BP 123/83; O2SAT 100
[2023-03-14] MEDS: IBUPROFEN 800 MG TAB PO PRN (03:20)
[2023-03-14 06:00] VITALS: BP 130/66; O2SAT 97
[2023-03-14] MEDS: ACETAMINOPHEN 500 MG TAB PO PRN (08:40)
[2023-03-14] MEDS: PRENATAL VITAMINS CHEWABLE TABLET PO SCH (08:40)
[2023-03-14] MEDS ORDERED: MEASLES,MUMPS,RUBELLA VACCINE INJ (MMR-II) SC.IMMUN ONE (09:00)
== END 2023-03-14 12:30 | disposition home or self-care (01) | DRG 807 ==
LOC: M LDI 08:38 → M OBS 20:40
PROVIDERS: ADMIT Obstetrics & Gynecology; ATTEND Obstetrics & Gynecology
PROC: 10E0XZZ Delivery of Products of Conception, External Approach (ICD-10-PCS; principal; 2023-03-12)
PROC: 3E033VJ Introduction of Other Hormone into Peripheral Vein, Percutaneous Approach (ICD-10-PCS; 2023-03-12)
PROC: 3E0P7VZ Introduction of Hormone into Female Reproductive, Via Natural or Artificial Opening (ICD-10-PCS; 2023-03-12)
DX: O48.0 Post-term pregnancy (principal); Z37.0 Single live birth; Z3A.41 41 weeks gestation of pregnancy; Z88.8 Allergy status to other drugs, medicaments and biological substances; O69.82X0 Labor and delivery complicated by other cord entanglement, without compression, not applicable or unspecified; O32.6XX0 Maternal care for compound presentation, not applicable or unspecified; O14.94 Unspecified pre-eclampsia, complicating childbirth

== ENCOUNTER → 2024-01-26 | Outpatient (CLI) | payer OTHER ==
[~2024-01-26] MED LIST changes: +ISOVUE-370 76% 100ML VIAL As Ordered ONE
== END ==
LOC: M RAD 09:35
PROVIDERS: ATTEND Internal Medicine
DX: R93.89 Abnormal findings on diagnostic imaging of other specified body structures (principal); K80.20 Calculus of gallbladder without cholecystitis without obstruction
CPT/HCPCS: 74160; Q9967

== ENCOUNTER → 2024-01-28 | Emergency (ER) | payer OTHER ==
[~2024-01-28] VITALS: Ht 170.2 cm; Wt 81.8 kg
[~2024-01-28] MED LIST changes: -ISOVUE-370 76% 100ML VIAL As Ordered ONE
[2024-01-28 23:11] VITALS: BP 165/97; TEMP 97.1; O2SAT 99
== END | disposition left against medical advice (07) ==
LOC: M ED 23:11
DX: Z53.21 Procedure and treatment not carried out due to patient leaving prior to being seen by health care provider (principal)